=== PATIENT | female | born 1975 | race Hispanic/Latino ===

== ENCOUNTER 2017-08-09 07:22 | Day surgery (SDC) | payer BC ==
[2017-08-05 14:59] LABS: Absolute Lymphocytes (CBC) 2.4 K/uL (0.7-4.9); Absolute Monocytes 0.4 K/uL (0.1-1.3); Absolute Neutrophil 3.7 K/uL (1.8-8.0); Basophils % 0.3 % (0-1.3); Eosinophils % 2.1 % (0-4.4); Hematocrit 36.6 % (36.0-45.0); Lymphocytes % 35.8 % (15.3-44.8); MCH 29.2 pg (27.0-35.0); MCV 87.8 fL (80-100); MPV 8.2 fL (7.6-11.3); Monocytes % 5.8 % (3.3-12.3); RBC Red Blood Cell Count 4.17 M/uL (3.86-4.86)
[2017-08-09] MEDS ORDERED: LIDOCAINE 1% W/EPI 1:100,000 MDV 50 ML VIAL ONE (08:41)
[2017-08-09] MEDS ORDERED: SILVER NITRATE 1 APPL TOP ONE (08:42)
[2017-08-09] MEDS ORDERED: NA CHLORIDE 0.9% 1,000 ML ONE (08:42)
[2017-08-09] MEDS ORDERED: PROPOFOL 200 MG/20 ML VIAL IV ONE (09:05)
[2017-08-09] MEDS ORDERED: MIDAZOLAM HCL 2 MG/2 ML INJ ONE (09:06)
[2017-08-09] MEDS ORDERED: ONDANSETRON 4 MG/2 ML VIAL ONE ×2 (09:06→12:22)
[2017-08-09] MEDS ORDERED: LIDOCAINE 2% MPF 5 ML VIAL ONE (09:06)
[2017-08-09] MEDS ORDERED: FENTANYL CITR 100 MCG/2 ML ONE (09:07)
[2017-08-09] MEDS: Ringers Lactate 1,000 ML IV ONE (09:45)
[2017-08-09] MEDS ORDERED: KETOROLAC 30 MG/ML INJ IV PRN (10:08)
[2017-08-09] MEDS ORDERED: IBUPROFEN 400 MG TAB PO PRN (10:08)
[2017-08-09] MEDS ORDERED: Oxycodone HCl/Acetaminophen 1 TAB TAB PO PRN (10:08)
--- NOTE | 2017-08-09 10:08 | P.OP ---
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 After bimanual examination, the cervix was exposed with a bivalve vaginal speculum and the anterior lip of the cervix grasped with a single tooth tenaculum. The uterus was sounded to a depth of 11 cm. The endocervical canal was then progressively dilated with Hanks and Hegar dilators to a #10 Hegar. The hysteroscope was then introduced into the uterine cavity using sterile saline solution as a distending media and with attached video camera. The endometrial cavity was distended with fluids and the cavity visualized. Multiple irregular areas of fibroid degeneration were noted throughout the cavity. The coronal areas were visualized bilaterally with corresponding tubal ostia. A moderate amount of proliferative appearing endometrium was noted. There were no direct intraluminal lesions seen. The patient tolerated the procedure well. Several pictures were taken of the endometrial cavity and the hysteroscope removed from the cavity. A large sharp curet was then used to obtain a moderate amount of tissue, which was the sent to pathologist for analysis. The instrument was removed from the vaginal vault. The patient was sent to recovery area in satisfactory postoperative condition. Complications: None Transferred to: Recovery Room Condition: Good
[2017-08-09] MEDS ORDERED: ONDANSETRON 4 MG/2 ML VIAL IV ONE (12:00)
[2017-08-10] MEDS: Ringers Lactate 1,000 ML IV ONE (07:30)
== END 2017-08-09 13:10 | disposition home or self-care (01) ==
LOC: OR 07:22
PROVIDERS: ATTEND Student in an Organized Health Care Education/Training Program
PROC: 0UJD8ZZ Inspection of Uterus and Cervix, Via Natural or Artificial Opening Endoscopic (ICD-10-PCS; 2017-08-09)
PROC: 0UDB7ZX Extraction of Endometrium, Via Natural or Artificial Opening, Diagnostic (ICD-10-PCS; principal; 2017-08-09 09:00)
DX: N84.0 Polyp of corpus uteri (principal); N93.9 Abnormal uterine and vaginal bleeding, unspecified; D50.8 Other iron deficiency anemias; E66.9 Obesity, unspecified; Z88.6 Allergy status to analgesic agent; Z88.3 Allergy status to other anti-infective agents; Z83.3 Family history of diabetes mellitus; Z80.42 Family history of malignant neoplasm of prostate; Z80.41 Family history of malignant neoplasm of ovary; Z82.61 Family history of arthritis; Z82.5 Family history of asthma and other chronic lower respiratory diseases
CPT/HCPCS: 36415; 81025; 85025; 86850; 86900; 86901; 88305; J2250; J2405; J3010; J7030